=== PATIENT | female | born 1965 | race American Indian/Alaskan Native ===

== ENCOUNTER 2021-10-22 15:19 | Inpatient (IN) | payer MEDICARE ==
[2021-10-22] MEDS ORDERED: ONDANSETRON 4 MG/2 ML INJ IV ONE (15:55)
[2021-10-22] MEDS ORDERED: PANTOPRAZOLE 40 MG INJ IV ONE (15:55)
[2021-10-22] MEDS ORDERED: MORPHINE 4 MG/1 ML INJ IV ONE (15:55)
[2021-10-22] MEDS ORDERED: SODIUM CHLORIDE 0.9% 1000 ML 1,000 ML IV ONE (15:55)
--- NOTE | 2021-10-22 16:00 | Emergency Department Report ---
ED Abdominal Pain HPI - General Chief Complaint: Abdominal Pain Stated Complaint: POSSIBLE STROKE Time Seen by Provider: 10/22/21 15:48 Source: patient Mode of arrival: Ambulatory Limitations: No Limitations - History of Present Illness Initial Comments: Patient is 56 years old female with history of Crohn's disease. Patient presented to the ER complaining of diffuse abdominal pain associated with nausea vomiting and diarrhea. Patient denied any hematemesis, hematochezia or melena. She denied any fever or chills. Patient is also complaining of ulcer on her tongue for the last few days. MD Complaint: abdominal pain -: days(s) Location: diffuse Radiation: none Migration to: no migration Severity: moderate Severity scale (0 -10): 7 Quality: cramping Consistency: constant Associated Symptoms: nausea, vomiting, diarrhea - Related Data Allergies Allergy/AdvReac Type Severity Reaction Status Date / Time No Known Allergies Allergy Unverified 10/22/21 15:53 ED Review of Systems ROS: Stated complaint: POSSIBLE STROKE Other details as noted in HPI Comment: All other systems reviewed and negative Constitutional: denies: chills, fever Respiratory: denies: cough, shortness of breath, SOB with exertion, SOB at rest Cardiovascular: denies: chest pain, palpitations Gastrointestinal: abdominal pain, nausea, vomiting, diarrhea. denies: constipation, hematemesis, melena, hematochezia Musculoskeletal: denies: back pain Neurological: denies: headache, weakness, numbness, paresthesias, confusion ED Past Medical Hx - Past Medical History Previous Medical History?: Yes Hx Hypertension: Yes Additional medical history: Chrons - Surgical History Past Surgical History?: No - Social History Smoking Status: Never Smoker Substance Use Type: None ED Physical Exam - General Limitations: No Limitations General appearance: alert, in no apparent distress - Head Head exam: Present: atraumatic, normocephalic, normal inspection - ENT ENT exam: Present: mucous membranes dry, other (Aphthous ulcer) - Neck Neck exam: Present: normal inspection, full ROM. Absent: tenderness, meningismus - Respiratory Respiratory exam: Present: normal lung sounds bilaterally - Cardiovascular Cardiovascular Exam: Present: regular rate, normal rhythm, normal heart sounds - GI/Abdominal GI/Abdominal exam: Present: soft, normal bowel sounds. Absent: distended, tenderness, guarding, rebound, rigid, organomegaly, mass, bruit, pulsatile mass, hernia - Extremities Exam Extremities exam: Present: normal inspection, full ROM, normal capillary refill. Absent: tenderness - Back Exam Back exam: Present: normal inspection, full ROM. Absent: CVA tenderness (R), CVA tenderness (L) - Neurological Exam Neurological exam: Present: alert, oriented X3, CN II-XII intact, normal gait, reflexes normal. Absent: motor sensory deficit - Psychiatric Psychiatric exam: Present: normal mood - Skin Skin exam: Present: warm, intact, normal color ED Course Vital Signs 10/22/21 10/22/21 10/22/21 15:51 15:53 16:01 Pulse Rate 112 H Respiratory 15 21 Rate Blood Pressure 152/97 O2 Sat by Pulse 99 98 99 Oximetry 10/22/21 10/22/21 10/22/21 16:15 16:31 16:45 Pulse Rate 123 H 115 H 109 H Respiratory 14 15 17 Rate Blood Pressure 152/97 152/95 152/95 O2 Sat by Pulse 98 98 98 Oximetry 10/22/21 10/22/21 10/22/21 17:01 17:15 17:31 Pulse Rate 114 H 113 H 118 H Respiratory 14 15 18 Rate Blood Pressure 182/91 182/91 147/90 O2 Sat by Pulse 96 97 96 Oximetry 10/22/21 17:45 Pulse Rate 117 H Respiratory 14 Rate Blood Pressure 147/90 O2 Sat by Pulse 96 Oximetry ED Medical Decision Making - Lab Data Result diagrams: 10/22/21 15:55 10/22/21 15:55 - Radiology Data Radiology results: report reviewed - Medical Decision Making Patient is 56 years old female with history of Crohn's disease. Patient presented to the ER complaining of diffuse abdominal pain associated with nausea vomiting and diarrhea. Patient denied any hematemesis, hematochezia or melena. She denied any fever or chills. Patient is also complaining of ulcer on her tongue for the last few days. Patient received morphine and Zofran. Labs reviewed and is unremarkable. CT abdomen and pelvis with IV contrast showed uncomplicated appendicitis. Patient received Zosyn. I discussed the patient with Dr. Washington, surgeon on-call and he advised to admit the patient to the hospital. I discussed the patient with Dr. Moy, he agreed to admit the patient to medical service for further management. Critical care attestation.: If time is entered above; I have spent that time in minutes in the direct care of this critically ill patient, excluding procedure time. ED Disposition Clinical Impression: Acute appendicitis Disposition: 09 ADMITTED INPATIENT Is pt being admited?: Yes Condition: Stable Instructions: Abdominal Pain (ED)
[2021-10-22] MEDS ORDERED: MAGIC MOUTHWASH 30ML PO ONE (17:00)
[2021-10-22 17:29] LABS: Basophils # (Auto) 0.1 K/mm3 (0.0-0.1); Basophils % (Auto) 0.8 % (0.0-1.8); Eosinophils % (Auto) 0.1 % (0.0-4.3); Hematocrit 39.6 % (30.3-42.9); Lymphocytes # (Auto) 1.3 K/mm3 (1.2-5.4); Mean Corpuscular HGB Conc 33 % (30-34); Mean Corpuscular Volume 92 fl (79-97); Monocytes # (Auto) 0.5 K/mm3 (0.0-0.8); Monocytes % (Auto) 7.3 % (0.0-7.3); Platelet Count 291 K/mm3 (140-440); Red Blood Count 4.32 M/mm3 (3.65-5.03); Red Cell Distribution Width 16.1 % (13.2-15.2)
[2021-10-22 17:34] LABS: Alanine Aminotransferase 22 units/L (7-56); Albumin 4.3 g/dL (3.9-5); BUN/Creatinine Ratio 14; Blood Urea Nitrogen 11 mg/dL (7-17); Calcium 9.8 mg/dL (8.4-10.2); Hemolysis Index 34
[2021-10-22 17:35] LABS: Bilirubin,Direct < 0.2 mg/dL (0-0.2)
--- NOTE | 2021-10-22 20:02 | Cat Scan Report ---
CT ABDOMEN AND PELVIS WITH CONTRAST INDICATION / CLINICAL INFORMATION: abdominal pain. TECHNIQUE: Axial CT images were obtained through the abdomen and pelvis after 100 cc of Omnipaque [address] scans at this location are performed using CT dose reduction for ALARA by means of automated exposure control. COMPARISON: None available. FINDINGS: LOWER CHEST: No significant abnormality. AORTA / ARTERIES: No significant abnormality. IVC / VEINS: No significant abnormality. LYMPH NODES: No significant adenopathy. COLON: No significant abnormality. APPENDIX: The appendix is enlarged measuring up to 1.1 cm. There is periappendiceal inflammation. STOMACH / SMALL BOWEL: No significant abnormality. PERITONEUM: No free fluid. No free air. No fluid collection. LIVER: No significant abnormality. GALLBLADDER: No significant abnormality. BILE DUCTS: No significant abnormality. PANCREAS: No significant abnormality. SPLEEN: No significant abnormality. ADRENALS: No significant abnormality. RIGHT KIDNEY / URETER: Subcentimeter hypoattenuating lesions most likely representing simple renal cy sts. LEFT KIDNEY / URETER: No significant abnormality. URINARY BLADDER: No significant abnormality. REPRODUCTIVE ORGANS: No significant abnormality. SKELETAL SYSTEM: No significant abnormality. ADDITIONAL FINDINGS: None. IMPRESSION: 1. Acute uncomplicated appendicitis. Signer Name: Toni Painting DO Signed: 10/22/2021 7:57 PM Workstation Name: [id number]
[2021-10-22] MEDS ORDERED: PIPERACILLIN/TAZOBACTAM 3.375 3.375 GM/50 ML BAG IV ONE (20:05)
[2021-10-22] MEDS ORDERED: fentaNYL 100 MCG/2 ML INJ IV ONE (20:23)
--- NOTE | 2021-10-22 20:25 | Consultation ---
History of Present Illness Consult date: 10/22/21 Reason for consult: abdominal pain - History of present illness History of present illness: 56 yo female with 2 day h/o RLQ pain, nausea, vomiting and diarrhea. Past History Past Medical History: No medical history Medications and Allergies Allergies Allergy/AdvReac Type Severity Reaction Status Date / Time No Known Allergies Allergy Unverified 10/22/21 15:53 Home Medications Medication Instructions Recorded Confirmed Last Taken Type Pregabalin [Lyrica] 75 mg PO DAILY 10/23/21 10/23/21 Unknown History Active Meds: Active Medications Piperacillin Sod/Tazobactam Sod (Zosyn/Ns 3.375gm/50ml) 3.375 gm in 50 mls @ 100 mls/hr IV ONCE ONE; Protocol Stop: 10/22/21 20:34 Review of Systems All systems: negative (none) Exam Vital Signs Pulse Ox 99 10/22/21 15:51 - General physical appearance Positive: well developed, well nourished, no distress - Eyes Positive: PERRL, normal occular movement - ENT Positive: normal pinna, normal nares, normal mucosa, no hearing loss, no congestion - Neck Positive: no masses, no bruits, trachea midline, no venous distension - Respiratory Positive: normal expansion, normal respiratory effort, clear to auscultation - Cardiovascular Rhythm: regular Heart Sounds: Present: S1 & S2. Absent: rub, click - Extremities Extremities: no ischemia, pulses symmetrical, No edema - Breasts Breasts: normal, no mass, no skin changes - Abdomen Abdomen: Present: soft, tender, bowel sounds normal. Absent: distended, masses, rebound, guarding (Mild TTP in the RLQ.) Hernia: none - Genitourinary Male Genitourinary: normal Female Genitourinary: normal - Integumentary no rash, no growths, no abnormal pigmentation - Neurologic Neurologic: alert and oriented to time, place and person, motor strength and sensation are grossly intact - Musculoskeletal normal gait, normal posture - Psychiatric Psychiatric: appropriate mood/affect, intact judgment & insight Results - Labs 10/23/21 04:43 10/23/21 04:43 Abnormal lab results 10/22/21 10/22/21 Range/Units 15:55 15:55 RDW 16.1 H (13.2-15.2) % Seg Neutrophils % 72.8 H (40.0-70.0) % AST 42 H (5-40) units/L Diabetes panel 10/22/21 Range/Units 15:55 Sodium 141 (137-145) mmol/L Potassium 3.6 (3.6-5.0) mmol/L Chloride 100.9 (98-107) mmol/L Carbon Dioxide 23 (22-30) mmol/L BUN 11 (7-17) mg/dL Creatinine 0.8 (0.6-1.2) mg/dL Glucose 99 (65-100) mg/dL Calcium 9.8 (8.4-10.2) mg/dL AST 42 H (5-40) units/L ALT 22 (7-56) units/L Alkaline Phosphatase 100 (35-129) units/L Total Protein 8.0 (6.3-8.2) g/dL Albumin 4.3 (3.9-5) g/dL Calcium panel 10/22/21 Range/Units 15:55 Calcium 9.8 (8.4-10.2) mg/dL Albumin 4.3 (3.9-5) g/dL Pituitary panel 10/22/21 Range/Units 15:55 Sodium 141 (137-145) mmol/L Potassium 3.6 (3.6-5.0) mmol/L Chloride 100.9 (98-107) mmol/L Carbon Dioxide 23 (22-30) mmol/L BUN 11 (7-17) mg/dL Creatinine 0.8 (0.6-1.2) mg/dL Glucose 99 (65-100) mg/dL Calcium 9.8 (8.4-10.2) mg/dL Adrenal panel 10/22/21 Range/Units 15:55 Sodium 141 (137-145) mmol/L Potassium 3.6 (3.6-5.0) mmol/L Chloride 100.9 (98-107) mmol/L Carbon Dioxide 23 (22-30) mmol/L BUN 11 (7-17) mg/dL Creatinine 0.8 (0.6-1.2) mg/dL Glucose 99 (65-100) mg/dL Calcium 9.8 (8.4-10.2) mg/dL Total Bilirubin 0.50 (0.1-1.2) mg/dL AST 42 H (5-40) units/L ALT 22 (7-56) units/L Alkaline Phosphatase 100 (35-129) units/L Total Protein 8.0 (6.3-8.2) g/dL Albumin 4.3 (3.9-5) g/dL - Imaging CT scan - abdomen: report reviewed CT scan - pelvis: report reviewed Assessment and Plan - Patient Problems (1) Acute appendicitis Current Visit: Yes Status: Acute Qualifiers: Appendicitis gangrene presence: without gangrene Appendicitis perforation presence: without perforation Plan to address problem: 1) NPO 2) IV Zosyn 3) For lap appy tomorrow
[2021-10-22] MEDS ORDERED: METOCLOPRAMIDE 10 MG/2 ML INJ IV PRN (21:57)
[2021-10-22] MEDS ORDERED: ACETAMINOPHEN 325 MG TAB PO PRN (21:57)
[2021-10-22] MEDS ORDERED: ONDANSETRON 4 MG/2 ML INJ IV PRN (21:57)
[2021-10-22] MEDS: FAMOTIDINE 20 MG/2 ML INJ IV SCH (22:00)
[2021-10-22] MEDS: HEPARIN 5,000 UNIT/1 ML VIAL SUB-Q SCH (22:00)
[2021-10-23] MEDS: HYDROmorphone 0.5 MG/0.5 ML INJ IV PRN ×3 (01:06→23:06)
[2021-10-23] MEDS ORDERED: PIPERACIL/TAZOBACTA 4.5/NS 100 4.5 GM/100 ML VIAL IV SCH (02:00)
[2021-10-23] MEDS: MORPHINE 2 MG/1 ML INJ IV PRN ×2 (03:27→20:41)
[2021-10-23] MEDS: SODIUM CHLORIDE 0.9% 1000 ML 1,000 ML IV SCH (03:39)
[2021-10-23] MEDS: PIPERACIL/TAZOBACTA 4.5/NS 100 4.5 GM/100 ML VIAL IV SCH ×3 (05:13→21:56)
[2021-10-23 05:24] LABS: Basophils # (Auto) 0.1 K/mm3 (0.0-0.1); Basophils % (Auto) 1.2 % (0.0-1.8); Eosinophils % (Auto) 0.7 % (0.0-4.3); Hematocrit 35.4 % (30.3-42.9); Hemoglobin 11.6 gm/dl (10.1-14.3); Lymphocytes % (Auto) 29.8 % (13.4-35.0); Mean Corpuscular HGB Conc 33 % (30-34); Mean Corpuscular Volume 93 fl (79-97); Monocytes # (Auto) 0.6 K/mm3 (0.0-0.8); Monocytes % (Auto) 9.8 % (0.0-7.3); Platelet Count 225 K/mm3 (140-440); Red Blood Count 3.81 M/mm3 (3.65-5.03); Red Cell Distribution Width 16.1 % (13.2-15.2)
[2021-10-23 05:45] LABS: Alanine Aminotransferase 20 units/L (7-56); Albumin 3.8 g/dL (3.9-5); Blood Urea Nitrogen 9 mg/dL (7-17); Hemolysis Index 14
[2021-10-23 05:46] LABS: BUN/Creatinine Ratio 13
--- NOTE | 2021-10-23 06:55 | History and Physical Report ---
History of Present Illness Date of examination: 10/22/21 Date of admission: 10/22/21 21:58 Chief complaint: Right lower quadrant pain for 2 days History of present illness: 56-year-old female with history of comes in for right lower quadrant pain for the last 2 days associated with nausea and diarrhea. Chills. No fever or chills. Pain is about 10 on a scale of 1-10. Vomited about 3-4 times. Every day. Pain is about 10 on a scale of 1-10. No exacerbating or relieving factors - Past Medical History Previous Medical History?: Yes Hx Hypertension: Yes Additional medical history: Chrons - Surgical History Past Surgical History?: No - Social History Smoking Status: Never Smoker Substance Use Type: None Review of Systems ROS: Stated complaint: POSSIBLE STROKE Other details as noted in HPI Comment: All other systems reviewed and negative Constitutional: denies: chills, fever Respiratory: denies: cough, shortness of breath, SOB with exertion, SOB at rest Cardiovascular: denies: chest pain, palpitations Gastrointestinal: abdominal pain, nausea, vomiting, diarrhea. denies: constipation, hematemesis, melena, hematochezia Musculoskeletal: denies: back pain Neurological: denies: headache, weakness, numbness, paresthesias, confusion Medications and Allergies Allergies Allergy/AdvReac Type Severity Reaction Status Date / Time No Known Allergies Allergy Unverified 10/22/21 15:53 Active Meds: Active Medications Acetaminophen (Acetaminophen 325 Mg Tab) 650 mg PO Q4H PRN PRN Reason: Pain MILD(1-3)/Fever >100.5/CARMONA Famotidine (Famotidine 20 Mg/2 Ml Inj) 20 mg IV BID [facility] Last Admin: 10/22/21 22:00 Dose: 20 mg Heparin Sodium (Porcine) (Heparin 5,000 Unit/1 Ml Vial) 5,000 unit SUB-Q Q12HR PETRONA Last Admin: 10/22/21 22:00 Dose: 5,000 unit Hydromorphone HCl (Hydromorphone 0.5 Mg/0.5 Ml Inj) 0.5 mg IV Q3H PRN PRN Reason: Pain , Severe (7-10) Last Admin: 10/23/21 01:06 Dose: 0.5 mg Sodium Chloride (Nacl 0.9% 1000 Ml) 1,000 mls @ 75 mls/hr IV DIRECT PETRONA Last Admin: 10/23/21 03:39 Dose: 75 mls/hr Piperacillin Sod/Tazobactam Sod (Zosyn/Ns 4.5gm/100ml) 4.5 gm in 100 mls @ 200 mls/hr IV Q8H PETRONA; Protocol Last Admin: 10/23/21 05:13 Dose: 200 mls/hr Metoclopramide HCl (Metoclopramide 10 Mg/2 Ml Inj) 10 mg IV Q6H PRN PRN Reason: Nausea And Vomiting Morphine Sulfate (Morphine 2 Mg/1 Ml Inj) 2 mg IV Q4H PRN PRN Reason: Pain, Moderate (4-6) Last Admin: 10/23/21 03:27 Dose: 2 mg Ondansetron HCl (Ondansetron 4 Mg/2 Ml Inj) 4 mg IV Q8H PRN PRN Reason: Nausea And Vomiting Last Admin: 10/23/21 03:28 Dose: 4 mg Sodium Chloride (Sodium Chloride 0.9% 10 Ml Flush Syringe) 10 ml IV BID PETRONA Last Admin: 10/22/21 21:00 Dose: 10 ml Sodium Chloride (Sodium Chloride 0.9% 10 Ml Flush Syringe) 10 ml IV PRN PRN PRN Reason: LINE FLUSH Exam - Constitutional Vitals: Temp Pulse Resp BP Pulse Ox 98.0 F 97 H 18 164/87 98 10/23/21 03:19 10/23/21 03:44 10/23/21 03:57 10/23/21 03:19 10/23/21 03:44 General appearance: Present: no acute distress, well-nourished - EENT Eyes: Present: PERRL ENT: hearing intact, clear oral mucosa - Neck Neck: Present: supple, normal ROM - Respiratory Respiratory effort: normal Respiratory: bilateral: CTA - Cardiovascular Heart rate: 78 Rhythm: regular Heart Sounds: Present: S1 & S2. Absent: rub, click - Extremities Extremities: pulses symmetrical, No edema Peripheral Pulses: within normal limits - Abdominal General gastrointestinal: Present: soft, non-tender, non-distended, normal bowel sounds Localized gastrointestinal: tender: RLQ, guarding: RLQ, rebound: RLQ Female genitourinary: Present: normal - Integumentary Integumentary: Present: clear, warm, dry - Musculoskeletal Musculoskeletal: gait normal, strength equal bilaterally - Psychiatric Psychiatric: appropriate mood/affect, intact judgment & insight - Neurologic Neurologic: CNII-XII intact, moves all extremities - Allied Health Allied health notes reviewed: nursing, case management Results - Labs CBC & Chem 7: 10/23/21 04:43 10/23/21 04:43 Labs: Laboratory Last Values WBC 6.6 K/mm3 (4.5-11.0) 10/23/21 04:43 RBC 3.81 M/mm3 (3.65-5.03) 10/23/21 04:43 Hgb 11.6 gm/dl (10.1-14.3) 10/23/21 04:43 Hct 35.4 % (30.3-42.9) 10/23/21 04:43 MCV 93 fl (79-97) 10/23/21 04:43 MCH 31 pg (28-32) 10/23/21 04:43 MCHC 33 % (30-34) 10/23/21 04:43 RDW 16.1 % (13.2-15.2) H 10/23/21 04:43 Plt Count 225 K/mm3 (140-440) 10/23/21 04:43 Lymph % (Auto) 29.8 % (13.4-35.0) 10/23/21 04:43 Garrard % (Auto) 9.8 % (0.0-7.3) H 10/23/21 04:43 Eos % (Auto) 0.7 % (0.0-4.3) 10/23/21 04:43 Baso % (Auto) 1.2 % (0.0-1.8) 10/23/21 04:43 Lymph # (Auto) 2.0 K/mm3 (1.2-5.4) 10/23/21 04:43 Garrard # (Auto) 0.6 K/mm3 (0.0-0.8) 10/23/21 04:43 Eos # (Auto) 0.0 K/mm3 (0.0-0.4) 10/23/21 04:43 Baso # (Auto) 0.1 K/mm3 (0.0-0.1) 10/23/21 04:43 Seg Neutrophils % 58.5 % (40.0-70.0) 10/23/21 04:43 Seg Neutrophils # 3.9 K/mm3 (1.8-7.7) 10/23/21 04:43 Sodium 144 mmol/L (137-145) 10/23/21 04:43 Potassium 3.7 mmol/L (3.6-5.0) 10/23/21 04:43 Chloride 106.2 mmol/L (98-107) 10/23/21 04:43 Carbon Dioxide 23 mmol/L (22-30) 10/23/21 04:43 Anion Gap 19 mmol/L 10/23/21 04:43 BUN 9 mg/dL (7-17) 10/23/21 04:43 Creatinine 0.7 mg/dL (0.6-1.2) 10/23/21 04:43 Estimated GFR > 60 ml/min 10/23/21 04:43 BUN/Creatinine Ratio 13 % 10/23/21 04:43 Glucose 90 mg/dL (65-100) 10/23/21 04:43 Calcium 9.0 mg/dL (8.4-10.2) 10/23/21 04:43 Total Bilirubin 0.50 mg/dL (0.1-1.2) 10/23/21 04:43 Direct Bilirubin < 0.2 mg/dL (0-0.2) 10/22/21 15:55 Indirect Bilirubin 0.3 mg/dL 10/22/21 15:55 AST 37 units/L (5-40) 10/23/21 04:43 ALT 20 units/L (7-56) 10/23/21 04:43 Alkaline Phosphatase 85 units/L (35-129) 10/23/21 04:43 Total Protein 6.8 g/dL (6.3-8.2) 10/23/21 04:43 Albumin 3.8 g/dL (3.9-5) L 10/23/21 04:43 Albumin/Globulin Ratio 1.3 % 10/23/21 04:43 Lipase 21 units/L (13-60) 10/22/21 15:55 Short CBC 10/22/21 10/23/21 Range/Units 15:55 04:43 WBC 6.8 6.6 (4.5-11.0) K/mm3 Hgb 13.0 11.6 (10.1-14.3) gm/dl Hct 39.6 35.4 (30.3-42.9) % Plt Count 291 225 (140-440) K/mm3 BMP 10/22/21 10/23/21 15:55 04:43 Sodium 141 144 Potassium 3.6 3.7 Chloride 100.9 106.2 Carbon Dioxide 23 23 BUN 11 9 Creatinine 0.8 0.7 Glucose 99 90 Calcium 9.8 9.0 Liver Function 10/22/21 10/23/21 Range/Units 15:55 04:43 Total Bilirubin 0.50 0.50 (0.1-1.2) mg/dL Direct Bilirubin < 0.2 (0-0.2) mg/dL AST 42 H 37 (5-40) units/L ALT 22 20 (7-56) units/L Alkaline Phosphatase 100 85 (35-129) units/L Albumin 4.3 3.8 L (3.9-5) g/dL Microbiology: Microbiology 10/22/21 20:31 Peripheral/Venous Blood Culture - Preliminary Culture in Progress 10/22/21 20:31 Peripheral/Venous Blood Culture - Preliminary Culture in Progress - Imaging and Cardiology Imaging and Cardiology: CT of the abdomen and pelvis acute uncomplicated ascites Bal/IV: Voiding Method Toilet Assessment and Plan Advance Directives: Yes (Full code) VTE prophylaxis?: Chemical Plan of care discussed with patient/family: Yes - Patient Problems (1) Acute appendicitis Current Visit: Yes Status: Acute Qualifiers: Appendicitis gangrene presence: without gangrene Appendicitis perforation presence: without perforation Plan to address problem: Patient with acute appendicitis IV fluids for now IV Zosyn Surgery consulted (2) Hypertension Current Visit: Yes Status: Chronic Qualifiers: Hypertension type: primary hypertension Qualified Code(s): I10 - Essential (primary) hypertension Plan to address problem: Continue antihypertensives On Catapres patch (3) Crohn's disease Current Visit: Yes Status: Inactive Plan to address problem: In remission now GI consult if necessary (4) DVT prophylaxis Current Visit: Yes Status: Acute Plan to address problem: On anticoagulation GI prophylaxis (5) Advance care planning Current Visit: Yes Status: Acute Plan to address problem: Disease education conducted, care plan discussed, diagnosis discussed, prognosis discussed. Patient is full code. Patient acknowledged understanding and agreement with care plan. +30 minutes.
[2021-10-23 08:10] LABS: Bilirubin,Urine NEG (Negative); Blood,Urine SM (Negative); Color,Urine Yellow (Yellow); Mucus,Urine FEW /HPF; Protein,Urine <15 mg/dL mg/dL (Negative); Urobilinogen,Urine < 2.0 mg/dL (<2.0)
[2021-10-23] MEDS: HEPARIN 5,000 UNIT/1 ML VIAL SUB-Q SCH ×2 (10:39→21:54)
[2021-10-23] MEDS: FAMOTIDINE 20 MG/2 ML INJ IV SCH ×2 (10:39→21:54)
--- NOTE | 2021-10-23 11:08 | Anesthesia Day of Surgery ---
Anesthesia Day of Surgery - Day of Surgery Patient Examined: Yes Patient H&P Reviewed: Yes Patient is NPO: Yes
--- NOTE | 2021-10-23 11:08 | Anesthesia Consultation ---
Anesthesia Consult and Med Hx Date of service: 10/23/21 - Airway Anesthetic Teeth Evaluation: Good ROM Head & Neck: Adequate Mental/Hyoid Distance: Adequate Mallampati Class: Class III Intubation Access Assessment: Possibly Difficult - Pre-Operative Health Status ASA Pre-Surgery Classification: ASA2 Proposed Anesthetic Plan: General - Pulmonary Hx Asthma: No COPD: No Hx Pneumonia: No - Cardiovascular System Hx Hypertension: Yes - Central Nervous System Hx Psychiatric Problems: Yes (pt is letargic, answers questions appropriately but with significant delay) - Endocrine Hx End Stage Renal Disease: No - Other Systems Hx Obesity: Yes - Additional Comments Anesthesia Medical History Comments: acute appendicitis
[2021-10-23] MEDS ORDERED: hydrALAZINE 20 MG/1 ML INJ IV PRN (13:43)
[2021-10-23] MEDS ORDERED: BUPIVACAINE-EPINEPHRINE/PF 0.25%-1:200,000 (30 ML) VIAL INFILTRATI ONE ×2 (13:57→16:54)
--- NOTE | 2021-10-23 14:08 | Progress Note ---
Assessment and Plan Assessment and plan: Right lower quadrant pain for 2 days History of present illness: 56-year-old female with history of comes in for right lower quadrant pain for the last 2 days associated with nausea and diarrhea. Chills. No fever or chills. Pain is about 10 on a scale of 1-10. Vomited about 3-4 times. Every day. Pain is about 10 on a scale of 1-10. No exacerbating or relieving factors 6/[address] showed uncomplicated appendicitis. Patient is awaiting surgical procedure today. Remains NPO. Continue pain control. Anticipate discharge in a.m. (1) Acute appendicitis Current Visit: Yes Status: Acute Qualifiers: Appendicitis gangrene presence: without gangrene Appendicitis perforation presence: without perforation Plan to address problem: Patient with acute appendicitis IV fluids for now IV Zosyn Surgery consulted (2) Hypertension Current Visit: Yes Status: Chronic Qualifiers: Hypertension type: primary hypertension Qualified Code(s): I10 - Essential (primary) hypertension Plan to address problem: Continue antihypertensives On Catapres patch (3) Crohn's disease Current Visit: Yes Status: Inactive Plan to address problem: In remission now GI consult if necessary (4) DVT prophylaxis Current Visit: Yes Status: Acute Plan to address problem: On anticoagulation GI prophylaxis (5) Advance care planning Current Visit: Yes Status: Acute Plan to address problem: Disease education conducted, care plan discussed, diagnosis discussed, prognosis discussed. Patient is full code. Patient acknowledged understanding and agreement with care plan. +30 minutes. History Interval history: Patient seen and examined still with right lower quadrant pain appears a bit lethargic. Discussed with nursing staff vitals noted the patient states that she is very soft-spoken. Hospitalist Physical - Physical exam Narrative exam: VITAL SIGNS: Reviewed. GENERAL: The patient appears normally developed, otherwise lethargic vital signs as documented. HEAD: No signs of head trauma. EYES: Pupils are equal. Extraocular motions intact. EARS: Hearing grossly intact. MOUTH: Oropharynx is normal. NECK: No adenopathy, no JVD. CHEST: Chest with clear breath sounds bilaterally. No wheezes, rales, or rhonchi. CARDIAC: Regular rate and rhythm. S1 and S2, without murmurs, gallops, or rubs. VASCULAR: No Edema. Peripheral pulses normal and equal in all extremities. ABDOMEN: Soft, right lower quadrant tenderness and non distended. No rebound or guarding, and no masses palpated. Bowel Sounds normal. MUSCULOSKELETAL: Good range of motion of all major joints. Extremities without clubbing, cyanosis or edema. NEUROLOGIC EXAM: Alert and oriented x 3 No focal sensory or strength deficits. She was only nodding her head but her nurse confirms that she does speak.. Follows commands. PSYCHIATRIC: Mood normal. SKIN: detail exam as documented in skin assessment - Constitutional Vitals: Temp Pulse Resp BP Pulse Ox 98.9 F 111 H 18 151/86 95 10/23/21 08:07 10/23/21 11:00 10/23/21 08:07 10/23/21 08:07 10/23/21 08:07 General appearance: Present: no acute distress, well-nourished Results - Labs CBC & Chem 7: 10/23/21 04:43 10/23/21 04:43 Labs: Laboratory Last Values WBC 6.6 K/mm3 (4.5-11.0) 10/23/21 04:43 RBC 3.81 M/mm3 (3.65-5.03) 10/23/21 04:43 Hgb 11.6 gm/dl (10.1-14.3) 10/23/21 04:43 Hct 35.4 % (30.3-42.9) 10/23/21 04:43 MCV 93 fl (79-97) 10/23/21 04:43 MCH 31 pg (28-32) 10/23/21 04:43 MCHC 33 % (30-34) 10/23/21 04:43 RDW 16.1 % (13.2-15.2) H 10/23/21 04:43 Plt Count 225 K/mm3 (140-440) 10/23/21 04:43 Lymph % (Auto) 29.8 % (13.4-35.0) 10/23/21 04:43 [place] % (Auto) 9.8 % (0.0-7.3) H 10/23/21 04:43 Eos % (Auto) 0.7 % (0.0-4.3) 10/23/21 04:43 Baso % (Auto) 1.2 % (0.0-1.8) 10/23/21 04:43 Lymph # (Auto) 2.0 K/mm3 (1.2-5.4) 10/23/21 04:43 [place] # (Auto) 0.6 K/mm3 (0.0-0.8) 10/23/21 04:43 Eos # (Auto) 0.0 K/mm3 (0.0-0.4) 10/23/21 04:43 Baso # (Auto) 0.1 K/mm3 (0.0-0.1) 10/23/21 04:43 Seg Neutrophils % 58.5 % (40.0-70.0) 10/23/21 04:43 Seg Neutrophils # 3.9 K/mm3 (1.8-7.7) 10/23/21 04:43 Sodium 144 mmol/L (137-145) 10/23/21 04:43 Potassium 3.7 mmol/L (3.6-5.0) 10/23/21 04:43 Chloride 106.2 mmol/L (98-107) 10/23/21 04:43 Carbon Dioxide 23 mmol/L (22-30) 10/23/21 04:43 Anion Gap 19 mmol/L 10/23/21 04:43 BUN 9 mg/dL (7-17) 10/23/21 04:43 Creatinine 0.7 mg/dL (0.6-1.2) 10/23/21 04:43 Estimated GFR > 60 ml/min 10/23/21 04:43 BUN/Creatinine Ratio 13 % 10/23/21 04:43 Glucose 90 mg/dL (65-100) 10/23/21 04:43 Calcium 9.0 mg/dL (8.4-10.2) 10/23/21 04:43 Total Bilirubin 0.50 mg/dL (0.1-1.2) 10/23/21 04:43 Direct Bilirubin < 0.2 mg/dL (0-0.2) 10/22/21 15:55 Indirect Bilirubin 0.3 mg/dL 10/22/21 15:55 AST 37 units/L (5-40) 10/23/21 04:43 ALT 20 units/L (7-56) 10/23/21 04:43 Alkaline Phosphatase 85 units/L (35-129) 10/23/21 04:43 Total Protein 6.8 g/dL (6.3-8.2) 10/23/21 04:43 Albumin 3.8 g/dL (3.9-5) L 10/23/21 04:43 Albumin/Globulin Ratio 1.3 % 10/23/21 04:43 Lipase 21 units/L (13-60) 10/22/21 15:55 Urine Color Yellow (Yellow) 10/23/21 07:45 Urine Turbidity Clear (Clear) 10/23/21 07:45 Urine pH 6.0 (5.0-7.0) 10/23/21 07:45 Ur Specific [place] 1.026 (1.003-1.030) 10/23/21 07:45 Urine Protein <15 mg/dl mg/dL (Negative) 10/23/21 07:45 Urine Glucose (UA) Neg mg/dL (Negative) 10/23/21 07:45 Urine Ketones 80 mg/dL (Negative) 10/23/21 07:45 Urine Blood Sm (Negative) 10/23/21 07:45 Urine Nitrite Neg (Negative) 10/23/21 07:45 Urine Bilirubin Neg (Negative) 10/23/21 07:45 Urine Urobilinogen < 2.0 mg/dL (<2.0) 10/23/21 07:45 Ur Leukocyte Esterase Neg (Negative) 10/23/21 07:45 Urine WBC (Auto) 1.0 /HPF (0.0-6.0) 10/23/21 07:45 Urine RBC (Auto) 1.0 /HPF (0.0-6.0) 10/23/21 07:45 U Epithel Cells (Auto) 4.0 /HPF (0-13.0) 10/23/21 07:45 Urine Mucus Few /HPF 10/23/21 07:45 Microbiology: Microbiology 10/22/21 20:31 Peripheral/Venous Blood Culture - Preliminary Culture in Progress 10/22/21 20:31 Peripheral/Venous Blood Culture - Preliminary Culture in Progress Bal/IV: Voiding Method Toilet Active Medications - Current Medications Current Medications: Generic Name Dose Route Start Last Admin Trade Name Freq PRN Reason Stop Dose Admin Acetaminophen 650 mg 10/22/21 21:57 Acetaminophen 325 Mg Tab PO Q4H PRN Pain MILD(1-3)/Fever >100.5/CARMONA Clonidine HCl 0.1 mg 10/23/21 20:00 Clonidine Tts 0.1 Mg/24 Hr Patch TD QWEEK PETRONA Famotidine 20 mg 10/22/21 22:00 10/23/21 10:39 Famotidine 20 Mg/2 Ml Inj IV 20 mg BID PETRONA Administration Heparin Sodium (Porcine) 5,000 unit 10/22/21 22:00 10/23/21 10:39 Heparin 5,000 Unit/1 Ml Vial SUB-Q 5,000 unit Q12HR PETRONA Administration Hydralazine HCl 10 mg 10/23/21 13:43 Hydralazine 20 Mg/1 Ml Inj IV Q3H PRN Blood Pressure Hydromorphone HCl 0.5 mg 10/22/21 21:57 10/23/21 07:45 Hydromorphone 0.5 Mg/0.5 Ml Inj IV 0.5 mg Q3H PRN Administration Pain , Severe (7-10) Sodium Chloride 1,000 mls @ 75 mls/hr 10/22/21 22:00 10/23/21 03:39 Nacl 0.9% 1000 Ml IV 75 mls/hr DIRECT PETRONA Administration Piperacillin Sod/Tazobactam Sod 4.5 gm in 100 mls @ 200 mls/hr 10/23/21 05:00 10/23/21 05:13 Zosyn/Ns 4.5gm/100ml IV 200 mls/hr Q8H PETRONA Administration Protocol Metoclopramide HCl 10 mg 10/22/21 21:57 10/23/21 07:44 Metoclopramide 10 Mg/2 Ml Inj IV 10 mg Q6H PRN Administration Nausea And Vomiting Morphine Sulfate 2 mg 10/22/21 21:57 10/23/21 03:27 Morphine 2 Mg/1 Ml Inj IV 2 mg Q4H PRN Administration Pain, Moderate (4-6) Ondansetron HCl 4 mg 10/22/21 21:57 10/23/21 03:28 Ondansetron 4 Mg/2 Ml Inj IV 4 mg Q8H PRN Administration Nausea And Vomiting Sodium Chloride 10 ml 10/22/21 22:00 10/23/21 10:39 Sodium Chloride 0.9% 10 Ml Flush Syringe IV 10 ml BID PETRONA Administration Sodium Chloride 10 ml 10/22/21 21:57 Sodium Chloride 0.9% 10 Ml Flush Syringe IV PRN PRN LINE FLUSH
[2021-10-23] MEDS ORDERED: ROCURONIUM 50 MG/5 ML INJ IV ONE (15:51)
[2021-10-23] MEDS ORDERED: propofoL 200 MG/20 ML VIAL IV ONE (15:51)
[2021-10-23] MEDS ORDERED: HYDROmorphone 1 MG/1 ML INJ ONE (15:51)
[2021-10-23] MEDS ORDERED: LIDOCAINE MPF (2%) 20 MG/1 ML VIAL 5 ML ONE (15:51)
[2021-10-23] MEDS ORDERED: HYDROmorphone 0.5 MG/0.5 ML INJ IV PRN (15:57)
[2021-10-23] MEDS ORDERED: ONDANSETRON 4 MG/2 ML INJ IV PRN (15:57)
[2021-10-23] MEDS ORDERED: WATER FOR IRRIG STERILE 1,000 ML BOTTLE IR ONE (16:54)
[2021-10-23] MEDS ORDERED: GLYCOPYRROLATE 0.4 MG/2 ML INJ ONE (17:28)
[2021-10-23] MEDS ORDERED: NEOSTIGMINE 10MG/10 ML INJ MDV ONE (17:28)
[2021-10-23] MEDS ORDERED: ONDANSETRON 4 MG/2 ML INJ ONE (17:28)
[2021-10-23] MEDS ORDERED: dexAMETHasone 20 MG/5 ML VIAL ONE (17:28)
[2021-10-23] MEDS ORDERED: LACTATED RINGERS 1,000 ML ONE ×2 (17:47→17:48)
--- NOTE | 2021-10-23 18:05 | Procedure Note ---
Date of procedure: 10/23/21 Pre-op diagnosis: 1) Acute appendicitis 2) incarcerated umbilical hernia Post-op diagnosis: same Procedure: 1) Laparoscopic appendectomy 2) Open repair of incarcerated umbilical hernia Description of procedure: Pt was placed supine on the OR table. GETA was administered. Abdomen was prepped and draped. Proposed trocar sites were infiltrated with 8 ml of 0.5% Marcaine with epinephrine. A small periumbilical incision was made. The periumbilical hernia was immediately identified. The hernia sac was dissected free of the SQ tissue. The sac was entered and contained incarcerated omentum. The omentum was freed from the hernia sac and was reduced back into the peritoneal cavity. A Hannah port was inserted into the peritoneal cavity and pneumoperitoneum established. Two 5 mm ports were inserted into the suprapubic space and lateral LLQ under direct vision. Pt was placed head and left side down. The appendix was identified and was found to be edematous and inflamed. Mesoappendix was taken down with a Ligasure. Base of the appendix was amputated with an endo-CRISTINE stapler. Appendix was placed in an endobag and the endobag removed via the periumbilical fascial defect. The cecal staple line was inspected and was found to be intact and hemostatic. The 5 mm ports were removed and no bleeding was identified from the port entry sites under low pressure. The Hannah port was removed. The periumbilical fascial defect was closed with 4 interrupted sutures of 0-Ethibond. Skin incisions were approximated with tanmay. Sterile, absorbent dressings were applied. Pt was extubated in the OR. Pt tolerated the procedure well. Pt was taken to PACU in stable condition. Anesthesia: GETA Surgeon: DINORAH GORDON Estimated blood loss: minimal Pathology: list (Appendix) Specimen disposition: to lab Condition: stable Disposition: PACU
[2021-10-23] MEDS ORDERED: cloNIDine TTS 0.1 MG/24 HR PATCH TD SCH (20:00)
[2021-10-24] MEDS: HYDROmorphone 0.5 MG/0.5 ML INJ IV PRN ×2 (02:44→06:15)
[2021-10-24] MEDS: PIPERACIL/TAZOBACTA 4.5/NS 100 4.5 GM/100 ML VIAL IV SCH ×2 (05:36→12:27)
[2021-10-24] MEDS: SODIUM CHLORIDE 0.9% 1000 ML 1,000 ML IV SCH (05:36)
[2021-10-24 08:06] VITALS: BP 171/93
[2021-10-24] MEDS: MORPHINE 2 MG/1 ML INJ IV PRN (09:52)
[2021-10-24] MEDS: HEPARIN 5,000 UNIT/1 ML VIAL SUB-Q SCH (09:53)
[2021-10-24] MEDS: FAMOTIDINE 20 MG/2 ML INJ IV SCH (11:51)
[2021-10-24] MEDS ORDERED: PREGABALIN 75 MG CAP PO SCH (13:00)
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
[2021-10-24] MEDS ORDERED: FAMOTIDINE 20 MG TAB PO SCH (22:00)
== END 2021-10-24 13:15 | disposition left against medical advice (07) | DRG 342 ==
LOC: ED 15:19 → 3A 21:58 → 4A 23:10
PROVIDERS: ADMIT Internal Medicine; ATTEND Internal Medicine
PROC: 0DTJ4ZZ Resection of Appendix, Percutaneous Endoscopic Approach (ICD-10-PCS; principal; 2021-10-23)
PROC: 0WQF0ZZ Repair Abdominal Wall, Open Approach (ICD-10-PCS; 2021-10-23)
DX: K35.80 Unspecified acute appendicitis (principal); K50.90 Crohn's disease, unspecified, without complications; K42.0 Umbilical hernia with obstruction, without gangrene; I10 Essential (primary) hypertension; Z88.0 Allergy status to penicillin; E66.9 Obesity, unspecified; Z68.28 Body mass index [BMI] 28.0-28.9, adult
CPT/HCPCS: 36415; 74177; 80048; 80053; 80076; 81001; 83690; 85025; 87040; 88304; G0378; J1815; J3490; C9113; J1100; J1170; J1644; J2270; J2405; J2543; J2704; J2710; J2765; J3010; J7030; J7120; Q9967

== ENCOUNTER 2021-10-24 15:18 | Emergency (ER) | payer MEDICARE | END 2021-10-25 02:09 | disposition left against medical advice (07) | LOC: ED 15:18 | DX: R11.0 Nausea (principal); Z53.21 Procedure and treatment not carried out due to patient leaving prior to being seen by health care provider ==

== ENCOUNTER 2021-10-25 08:27 | Emergency (ER) | payer MEDICARE ==
[2021-10-25 11:26] LABS: Basophils # (Auto) 0.1 K/mm3 (0.0-0.1); Eosinophils % (Auto) 0.1 % (0.0-4.3); Hematocrit 42.5 % (30.3-42.9); Hemoglobin 13.9 gm/dl (10.1-14.3); Lymphocytes # (Auto) 1.9 K/mm3 (1.2-5.4); Lymphocytes % (Auto) 15.7 % (13.4-35.0); Mean Corpuscular HGB Conc 33 % (30-34); Mean Corpuscular Volume 94 fl (79-97); Monocytes # (Auto) 1.1 K/mm3 (0.0-0.8); Monocytes % (Auto) 9.2 % (0.0-7.3); Red Blood Count 4.53 M/mm3 (3.65-5.03); Red Cell Distribution Width 16.5 % (13.2-15.2)
[2021-10-25 12:24] LABS: Alanine Aminotransferase 27 units/L (7-56); Albumin 4.7 g/dL (3.9-5); Blood Urea Nitrogen 10 mg/dL (7-17); Calcium 9.9 mg/dL (8.4-10.2); Hemolysis Index 13
[2021-10-25 12:28] LABS: BUN/Creatinine Ratio 14
[2021-10-25 13:29] LABS: Platelet Count 228 K/mm3 (140-440)
[2021-10-25] MEDS ORDERED: ONDANSETRON 4 MG/2 ML INJ IV ONE (17:10)
[2021-10-25] MEDS ORDERED: SODIUM CHLORIDE 0.9% 1000 ML 1,000 ML IV ONE (17:10)
[2021-10-25] MEDS ORDERED: fentaNYL 100 MCG/2 ML INJ IV ONE (17:10)
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
[2021-10-25 18:13] LABS: Bilirubin,Urine Negative (Negative); Blood,Urine Negative (Negative); Color,Urine Yellow (Yellow)
[2021-10-25 18:14] LABS: RBC,Urine < 1.0 /HPF (0.0-6.0); Urobilinogen,Urine < 2.0 mg/dL (<2.0); WBC,Urine < 1.0 /HPF (0.0-6.0)
[2021-10-25 18:15] LABS: Bacteria,Urine 3+ /HPF (Negative); Epithelial Casts,Urine 3 /HPF
--- NOTE | 2021-10-25 20:10 | Cat Scan Report ---
CT ABDOMEN AND PELVIS WITH IV CONTRAST INDICATION: 2 days postop laparoscopic appendectomy, abd pain. COMPARISON: 10/22/2021 TECHNIQUE: All CT scans at this facility use dose modulation, automated exposure control, iterative reconstructi on or weight based dosing, when appropriate, to reduce radiation dose to as low as reasonably achieva ble. FINDINGS: Lung Bases: No significant abnormality. Skeletal System: No acute abnormality. ABDOMEN: Liver: No significant abnormality. Gallbladder: No significant abnormality. Bile Ducts: No significant abnormality. Adrenals: There is a stable 1.7 cm right adrenal nodule. Statistically this is most likely an adenoma . Right Kidney: No significant abnormality. Lower pole cyst is noted. Left Kidney: No significant abnormality. Pancreas: No significant abnormality. Spleen: No significant abnormality. Upper GI tract: No significant abnormality. Lymph Nodes: No significant adenopathy. Aorta: No significant abnormality. Additional Findings: Trace free air under the anterior right hemidiaphragm is likely related to recen t surgery. Postsurgical changes are noted at the umbilicus. PELVIS: Colon: Proximal colon is mildly distended with a few air-fluid levels. Urinary Bladder and Distal Ureters: No significant abnormality. Appendix: Interval appendectomy. Lymph Nodes: No significant adenopathy. Additional Findings: None. IMPRESSION: 1. Interval appendectomy. No abscess or other postoperative complication is seen. There are posterio r changes at the umbilicus and trace free air under the right hemidiaphragm which is likely related t o the recent surgery. 2. Probable mild adynamic ileus. Signer Name: Edgard Romero MD Signed: 10/25/2021 8:06 PM Workstation Name: [id number]
[2021-10-25] MEDS ORDERED: BACITRACIN ZINC OINT 28.4 GM TP ONE (20:33)
[2021-10-25 23:46] VITALS: BP 135/78
== END 2021-10-25 23:46 | disposition home or self-care (01) ==
LOC: ED 08:27
DX: T23.029A Burn of unspecified degree of unspecified single finger (nail) except thumb, initial encounter (principal); G89.18 Other acute postprocedural pain; I10 Essential (primary) hypertension; K50.90 Crohn's disease, unspecified, without complications; Z98.890 Other specified postprocedural states; X08.8XXA Exposure to other specified smoke, fire and flames, initial encounter; Y93.89 Activity, other specified; Y92.89 Other specified places as the place of occurrence of the external cause; Y99.8 Other external cause status
CPT/HCPCS: 36415; 74177; 80053; 81001; 85025; 96361; 96374; 96375; 99284; J2405; J3010; J7030; Q9967

== ENCOUNTER 2021-11-29 09:48 | Outpatient (CLI) | payer MEDICARE ==
[2021-11-29] MEDS ORDERED: LIDOCAINE (4%) 40 MG/ML TOPICAL SOLN 50 ML BOTTLE TP ONE (10:27)
== END 2021-11-29 09:49 | disposition home or self-care (01) ==
LOC: WOUND 09:48
PROVIDERS: ATTEND Surgery
DX: T81.89XA Other complications of procedures, not elsewhere classified, initial encounter (principal); I10 Essential (primary) hypertension; K51.90 Ulcerative colitis, unspecified, without complications; F41.9 Anxiety disorder, unspecified; Z79.899 Other long term (current) drug therapy; Z90.49 Acquired absence of other specified parts of digestive tract; Z86.73 Personal history of transient ischemic attack (TIA), and cerebral infarction without residual deficits; Y83.8 Other surgical procedures as the cause of abnormal reaction of the patient, or of later complication, without mention of misadventure at the time of the procedure; Y92.238 Other place in hospital as the place of occurrence of the external cause
CPT/HCPCS: 99214; G0463